=== PATIENT | female | born 1955 | race Caucasian/White ===

== ENCOUNTER → 2020-04-11 | Outpatient (CLI) | payer BC ==
--- NOTE | 2020-04-11 16:33 | US ---
EXAM DESCRIPTION: Venous,Upper Extremity RT: ULTRASOUND. CLINICAL HISTORY: PAIN IN RIGHT ARM. Weakness picking up up objects with right arm and flexing right elbow. Patient has to pronate right forearm 2 Flex the elbow. Extensive ecchymosis mid and distal anterior scan of the right upper arm. COMPARISON: None Available. TECHNIQUE: Two -dimensional and doppler sonographic evaluation of the deep venous system of the right upper extremity. FINDINGS: Doppler evaluation shows normal color flow and normal phasicity and augmentation of the right subclavian, jugular, axillary, basilic, brachial, radial vein and ulnar vein. Right upper extremity cephalic vein was not seen. The right upper extremity deep veins showed normal occlusion with transducer pressure. Two-dimensional survey showed no echogenic thrombus within these veins. The 2 heads of the right biceps muscle are visualized abutting the right humeral head. The muscle bellies are poorly visualized in the distal third of the upper right arm with disruption of muscle fibers surrounded by fluid. IMPRESSION: 1. Duplex ultrasound evaluation of the right upper extremity deep venous system showing no thrombosis. 2. Suspect partial tear of the distal right biceps brachii muscle. Consider MRI scan of the distal right upper arm and right elbow. Electronically signed by: Magdaleno Pena MD 04/11/2020 4:31 PM CDT
== END ==
LOC: US 14:43
PROVIDERS: ATTEND Nurse Practitioner Family
DX: M79.601 Pain in right arm (principal); M67.921 Unspecified disorder of synovium and tendon, right upper arm

== ENCOUNTER → 2020-04-13 | Outpatient (CLI) | payer BC ==
--- NOTE | 2020-04-13 10:23 | MRI ---
EXAM DESCRIPTION: MRI right upper arm/humerus CLINICAL HISTORY: Rupture biceps tendon. Pain and swelling. Upper arm bruising. Marion a pop 5 days ago COMPARISON: None. TECHNIQUE: Multiplanar, multisequence MR images of the right upper arm/humerus FINDINGS: Complete rupture of the long head biceps tendon at the shoulder with distal retraction 9.5 cm below the humeral head attachment of the biceps sarah ligament. Edema and fluid along the torn and retracted biceps tendon and along the superficial fascia of the muscle. Not a detailed evaluation of the shoulder. Large [id number] images demonstrate complete supraspinatus tendon tear and near complete subscapularis tendon tear. Chronic chondrosis with a large region of full-thickness chondral loss, subchondral cystic change and edema in the lower glenoid over about 1.5 cm. Glenohumeral joint effusion and contiguous subacromial subdeltoid bursal fluid Not a detailed evaluation of the elbow. No acute tendon abnormality seen at the elbow Normal marrow signal in the humerus The other muscles of the right upper arm are normal. No abnormality along the neurovascular structures IMPRESSION: Complete rupture of the long head biceps tendon at the shoulder with distal retraction about 9.5 cm Complete supraspinatus and near complete subscapularis tendon tear. Chronic osteochondral lesion of the glenoid. Consider dedicated MRI of the shoulder Electronically signed by: Ab Wyman MD 04/13/2020 10:21 AM CDT
== END ==
LOC: MRI 08:05
PROVIDERS: ATTEND Nurse Practitioner Family
DX: M66.821 Spontaneous rupture of other tendons, right upper arm (principal); M75.121 Complete rotator cuff tear or rupture of right shoulder, not specified as traumatic; M24.111 Other articular cartilage disorders, right shoulder

== ENCOUNTER → 2020-05-03 | Outpatient (CLI) | payer BC ==
--- NOTE | 2020-05-03 10:20 | RAD ---
EXAM DESCRIPTION: Humerus,Right CLINICAL HISTORY: PN IN UPPER LIMB COMPARISON: None. TECHNIQUE: 2 views right FINDINGS: I see no bone joint or soft tissue abnormality. IMPRESSION: Normal right humerus. Electronically signed by: Jasvir Hanson MD 05/03/2020 10:18 AM CDT
== END ==
LOC: RAD 09:00
PROVIDERS: ATTEND Orthopaedic Surgery
DX: M79.601 Pain in right arm (principal)

== ENCOUNTER → 2020-10-23 | Outpatient (CLI) | payer BC | LOC: GMALS 10:34 | PROVIDERS: ATTEND Nurse Practitioner Acute Care | DX: R53.83 Other fatigue (principal); E11.9 Type 2 diabetes mellitus without complications ==